=== PATIENT | male | born 1950 | race Caucasian/White ===

== ENCOUNTER → 2016-08-29 | Outpatient (CLI) | payer MEDICARE | END | disposition home or self-care (01) | LOC: CDC 10:10 | DX: I45.9 Conduction disorder, unspecified (principal); D41.4 Neoplasm of uncertain behavior of bladder | CPT/HCPCS: 93000 ==

== ENCOUNTER 2016-10-31 15:53 | Emergency (ER) | payer OTHER, MEDICARE ==
[~2016-10-31] VITALS: Ht 182.9 cm; Wt 78.7 kg
[2016-10-31] MEDS ORDERED: VENLAFAXINE HCL75 M3 PO (16:18)
[2016-10-31] MEDS ORDERED: SIMVASTATIN40 MG PO (16:18)
[2016-10-31 17:40] LABS: HEMATOCRIT 46.3 % (38.0-50.0); MCH 30.2 PG (29.0-34.0); MCHC 32.8 G/DL (30.0-36.0); MCV 91.9 FL (86-99); PLATELET COUNT 299 K/uL (156-360); RBC DIS.WIDTH-CV 13.1 % (11.8-14.6); RBC DIS.WIDTH-SD 44.2 % (39-53); RED BLOOD COUNT 5.04 M/uL (4.00-5.50); WHITE BLOOD COUNT 11.8 K/uL (4.1-10.2)
[2016-10-31 17:59] LABS: CHLORIDE 106 mEq/L (99-109); POTASSIUM 3.8 mEq/L (3.7-5.4); SODIUM 141 mEq/L (136-147)
[2016-10-31 18:00] LABS: GLUCOSE 85 mg/dL (70-99)
[2016-10-31 18:02] LABS: ANION GAP 9 MEQ/L (2-14)
[2016-10-31 18:04] LABS: GFR ESTIMATE (CALCULATED) > 59 mL/min/
[2016-10-31 18:05] LABS: UREA NITROGEN (BUN) 21 mg/dL (9-23)
[2016-10-31 18:13] VITALS: BP 117/69
== END 2016-10-31 19:48 | disposition left against medical advice (07) ==
LOC: EME 15:53
PROVIDERS: Emergency Medicine
DX: R55 Syncope and collapse (principal); C67.9 Malignant neoplasm of bladder, unspecified; Z87.891 Personal history of nicotine dependence
CPT/HCPCS: 80048; 85027; 93005; 99281; 99285

== ENCOUNTER → 2017-08-22 | Outpatient (CLI) | payer OTHER, MEDICARE ==
[~2017-08-22] VITALS: Ht 182.9 cm; Wt 95.3 kg
[~2017-08-22] MED LIST: CIALIS2.5 MG PO; FENOFIBRATE160 M1 PO; SIMVASTATIN40 MG PO; VENLAFAXINE HCL75 M3 PO; ZOCOR40 MG PO
== END | disposition home or self-care (01) ==
LOC: AMB 10:51
DX: D12.2 Benign neoplasm of ascending colon (principal); D12.3 Benign neoplasm of transverse colon; K63.5 Polyp of colon; Z86.010 Personal history of colon polyps
CPT/HCPCS: 88305; J0171

== ENCOUNTER → 2017-12-04 | Outpatient (CLI) | payer OTHER, MEDICARE ==
[~2017-12-04] VITALS: Ht 182.9 cm; Wt 97.5 kg
== END | disposition home or self-care (01) ==
LOC: AMB 08:00
DX: Z12.11 Encounter for screening for malignant neoplasm of colon (principal); D12.3 Benign neoplasm of transverse colon; D12.4 Benign neoplasm of descending colon; Z86.010 Personal history of colon polyps; C67.9 Malignant neoplasm of bladder, unspecified; I10 Essential (primary) hypertension; G47.33 Obstructive sleep apnea (adult) (pediatric)
CPT/HCPCS: 88305; J3010